=== PATIENT | female | born 1955 | race Caucasian/White ===

== ENCOUNTER 2019-02-02 20:48 | Emergency (ER) | payer OTHER ==
[~2019-02-02] VITALS: Ht 172.7 cm; Wt 83.1 kg
[~2019-02-02 20:48] MED LIST: IBUP-1542 PO
[2019-02-02 20:51] VITALS: Ht 172.7 cm; Wt 83.1 kg
[2019-02-02] MEDS ORDERED: ONDANSETRON (ODT) 4 MG TAB ODT STA (21:45)
[2019-02-02] MEDS ORDERED: HYDROCODONE/APAP (10/325) TAB PO ONE (22:00)
[2019-02-02] MEDS ORDERED: IBUPROFEN 800 MG TAB PO ONE (22:30)
[2019-02-03 00:05] VITALS: BP 150/76; PULSE 67; RESP 16
== END 2019-02-03 00:06 | disposition home or self-care (01) ==
LOC: E/R 20:48
DX: S60.221A Contusion of right hand, initial encounter (principal); S80.211A Abrasion, right knee, initial encounter; I10 Essential (primary) hypertension; W01.0XXA Fall on same level from slipping, tripping and stumbling without subsequent striking against object, initial encounter; Y92.9 Unspecified place or not applicable